=== PATIENT | male | born 1970 | race Hispanic/Latino ===

== ENCOUNTER 2017-10-06 08:43 | Emergency (ER) | payer OTHER ==
[~2017-10-06] VITALS: Ht 167.6 cm; Wt 72.0 kg
[2017-10-06] MEDS ORDERED: KEFLEX500 M1 PO (10:50)
[2017-10-06 11:04] VITALS: BP 135/77
== END 2017-10-06 11:13 | disposition home or self-care (01) | DRG 605 ==
LOC: ED 08:43
PROC: 0HQFXZZ Repair Right Hand Skin, External Approach (ICD-10-PCS; principal; 2017-10-06)
DX: S61.411A Laceration without foreign body of right hand, initial encounter (principal); W27.8XXA Contact with other nonpowered hand tool, initial encounter; Y93.89 Activity, other specified; Y92.89 Other specified places as the place of occurrence of the external cause

== ENCOUNTER 2017-10-16 09:55 | Emergency (ER) | payer OTHER ==
[~2017-10-16] VITALS: Ht 167.6 cm; Wt 65.0 kg
[~2017-10-16 09:55] MED LIST: KEFLEX500 M1 PO
[2017-10-16 10:40] VITALS: BP 118/68
== END 2017-10-16 10:40 | disposition home or self-care (01) | DRG 950 ==
LOC: ED 09:55
DX: S61.411D Laceration without foreign body of right hand, subsequent encounter (principal)